=== PATIENT | male | born 1940 | race Caucasian/White ===

== ENCOUNTER → 2017-06-18 | Outpatient (CLI) | payer OTHER | END | disposition home or self-care (01) | LOC: CVU 09:46 | PROVIDERS: ATTEND Internal Medicine Cardiovascular Disease | DX: I08.0 Rheumatic disorders of both mitral and aortic valves (principal); I77.819 Aortic ectasia, unspecified site; I42.8 Other cardiomyopathies; I10 Essential (primary) hypertension; E78.5 Hyperlipidemia, unspecified; Z95.0 Presence of cardiac pacemaker | CPT/HCPCS: 93306 ==

== ENCOUNTER 2017-07-21 10:24 | Emergency (ER) | payer OTHER ==
[~2017-07-21] VITALS: Ht 170.2 cm; Wt 97.0 kg
[2017-07-21] MEDS ORDERED: METOCLOPRAMIDE 5 MG/ML, 2ML IVPush ONE (11:30)
[2017-07-21] MEDS ORDERED: KETOROLAC 30 MG/1 ML IVPush ONE (11:30)
[2017-07-21] MEDS ORDERED: SODIUM CHLORIDE 0.9% 1,000ML IVBOLUS ONE (11:30)
[2017-07-21] MEDS ORDERED: SODIUM CHLORIDE FLUSH 10ML SYR IVF ONE (11:30)
[2017-07-21] MEDS ORDERED: VALS40TA2 PO (11:57)
[2017-07-21] MEDS ORDERED: SITA1TBM4 PO (11:57)
[2017-07-21] MEDS ORDERED: EMPA10TA PO (11:57)
[2017-07-21] MEDS ORDERED: LOVA10TA PO (11:57)
[2017-07-21] MEDS ORDERED: DIGO125T PO (11:57)
[2017-07-21] MEDS ORDERED: VALS80TA3 PO (11:57)
[2017-07-21] MEDS ORDERED: DABI150C PO (11:57)
[2017-07-21] MEDS ORDERED: SPIR25TA3 PO (11:57)
[2017-07-21] MEDS ORDERED: GLIP-142 PO (11:57)
[2017-07-21] MEDS ORDERED: CARV-39 PO (11:57)
[2017-07-21] MEDS ORDERED: DORZ10DR21 EACHEYE (11:57)
[2017-07-21 12:24] LABS: BLOOD UREA NITROGEN 19 mg/dL (7-18)
[2017-07-21 12:25] LABS: HEMATOCRIT 41.3 % (39.2-51.8); HEMOGLOBIN 13.5 g/dL (13.7-18.0); WHITE BLOOD COUNT 6.2 x10^3/uL (3.4-10)
[2017-07-21 13:16] VITALS: BP 143/71
== END 2017-07-21 13:18 | disposition home or self-care (01) ==
LOC: ED 13:05
DX: H60.62 Unspecified chronic otitis externa, left ear (principal); E11.9 Type 2 diabetes mellitus without complications
CPT/HCPCS: 36415; 80048; 85025; 99284

== ENCOUNTER → 2018-10-21 | Outpatient (CLI) | payer MEDICARE ==
[~2018-10-21] MED LIST: CARV-39 PO; DABI150C PO; DIGO125T PO; DORZ10DR21 EACHEYE; EMPA10TA PO; GLIP-142 PO; LOVA10TA PO; SITA1TBM4 PO; SPIR25TA5 PO; VALS40TA2 PO; VALS80TA3 PO
== END | disposition home or self-care (01) ==
LOC: CVU 08:19
PROVIDERS: ATTEND Family Medicine
DX: E11.51 Type 2 diabetes mellitus with diabetic peripheral angiopathy without gangrene (principal); M79.604 Pain in right leg; M79.605 Pain in left leg; I10 Essential (primary) hypertension; E78.5 Hyperlipidemia, unspecified; Z95.0 Presence of cardiac pacemaker
CPT/HCPCS: 93922

== ENCOUNTER 2019-05-31 09:46 | Outpatient (CLI) | payer MEDICARE | END 2019-05-31 23:59 | disposition home or self-care (01) | LOC: CVU 09:46 | PROVIDERS: ATTEND Registered Nurse | DX: I08.0 Rheumatic disorders of both mitral and aortic valves (principal); I11.9 Hypertensive heart disease without heart failure; E78.5 Hyperlipidemia, unspecified; I42.8 Other cardiomyopathies; Z95.0 Presence of cardiac pacemaker | CPT/HCPCS: 0399T; 93306 ==

== ENCOUNTER → 2020-10-05 | Outpatient (CLI) | payer MEDICARE ==
[~2020-10-05] MED LIST changes: -DIGO125T PO; +DIGO125T85 PO
== END | disposition home or self-care (01) ==
LOC: CFH 12:32
PROVIDERS: ATTEND Internal Medicine Cardiovascular Disease
DX: I08.3 Combined rheumatic disorders of mitral, aortic and tricuspid valves (principal); I42.8 Other cardiomyopathies
CPT/HCPCS: 93306

== ENCOUNTER 2020-11-26 08:02 | Day surgery (SDC) | payer MEDICARE ==
[~2020-11-26] VITALS: Ht 170.2 cm; Wt 83.0 kg
[~2020-11-26 08:02] MED LIST changes: +DOXA2TAB9 PO; +LEVO50TA PO; +OXYB5TAB10 PO
[2020-11-26] MEDS ORDERED: SODIUM CHLORIDE 0.9% 1,000 ML IV SCH (08:30)
[2020-11-26 08:43] VITALS: BP 134/71
[2020-11-26] MEDS ORDERED: LIDOCAINE 1%, 10ML ONE (09:51)
[2020-11-26] MEDS ORDERED: FENTANYL PF 100 MCG/2ML ONE (10:19)
[2020-11-26] MEDS ORDERED: FLUMAZENIL 0.1 MG/1 ML, 5ML ONE (10:19)
[2020-11-26] MEDS ORDERED: MIDAZOLAM 1 MG/ML, 5ML ONE (10:19)
[2020-11-26] MEDS ORDERED: NALOXONE 1 MG/ML, 2ML ONE (10:19)
[2020-11-26] MEDS ORDERED: VISIPAQUE 270 MG/ML, 50ML BOTTLE ONE (11:00)
== END 2020-11-26 13:10 | disposition home or self-care (01) ==
LOC: OUT 08:02
PROVIDERS: ATTEND Urology
DX: N32.0 Bladder-neck obstruction (principal); N40.1 Benign prostatic hyperplasia with lower urinary tract symptoms; N39.490 Overflow incontinence; N13.30 Unspecified hydronephrosis; I10 Essential (primary) hypertension; I48.91 Unspecified atrial fibrillation; E11.9 Type 2 diabetes mellitus without complications; Z79.01 Long term (current) use of anticoagulants; Z79.84 Long term (current) use of oral hypoglycemic drugs; Z79.890 Hormone replacement therapy; Z79.899 Other long term (current) drug therapy; Z88.0 Allergy status to penicillin; Z88.2 Allergy status to sulfonamides; Z98.52 Vasectomy status; Z98.890 Other specified postprocedural states; Z82.49 Family history of ischemic heart disease and other diseases of the circulatory system
CPT/HCPCS: 51102; 76942; 77002; 99156; 99157; C1725; C1769; J2250; J3010; J7030; Q9966; 75989; J2310